=== PATIENT | female | born 1945 | race Caucasian/White ===

== ENCOUNTER → 2017-08-20 | Outpatient (CLI) | payer MEDICARE ==
[~2017-08-20] MED LIST: ALBU.083IS IH; ALBU90OI6 INH; ALEN70 PO; AMLO10 PO; BUPR75 PO; Bupropion Xl150 MG PO; CALCA400CH PO; CITA20 PO; CLON.1 PO; FISH1000 PO; HYDACE5 PO; LEVSOD100 PO; LORA1 PO; METO25ER PO; Norco 5-325 Ta1 EACH PO; PRAV20 PO; Pravastatin Sod40 MG PO; Prinivil5 MG PO; SULTRIDS PO; TRAM50 PO; TYLENOL COLD; [UNRECOGNIZED DRUG - MIXTURE]
[2017-08-20 14:21] LABS: Alanine Aminotransfer (ALT/SGP 26 U/L (12-78); Alk Phos 73 U/L (50-136); Anion Gap 9 mmol/L (6-16); Aspartate Aminotrans (AST/SGOT 16 U/L (12-37); Bilirubin, Total 0.9 mg/dL (0.1-1.0); Blood Urea Nitrogen 10 mg/dL (8-24); Bun/Creatinine Ratio 16.3 (12.0-20.0); CO2, Blood 27 mmol/L (21-32); Calcium, Blood 9.5 mg/dL (8.5-10.1); Chloride, Blood 102 mmol/L (98-108); Creatinine, Blood 0.61 mg/dL (0.40-1.00); Glomerular Filtration Rate >60 (60-); Glucose, Blood 110 mg/dL (70-99); Potassium, Blood 3.8 mmol/L (3.5-5.5); Sodium, Blood 138 mmol/L (136-145)
== END ==
LOC: LAB EV 13:20 → LAB SHORT 13:20
PROVIDERS: Physician Assistant
DX: R25.2 Cramp and spasm (principal)
CPT/HCPCS: 80053

== ENCOUNTER → 2018-07-02 | Outpatient (CLI) | payer MEDICARE | END | disposition home or self-care (01) | LOC: LAB SHORT 17:17 → LAB 17:17 | DX: N39.0 Urinary tract infection, site not specified (principal) | CPT/HCPCS: 87086 ==